=== PATIENT | male | born 1985 | race Caucasian/White ===

== ENCOUNTER 2017-10-12 07:29 | Emergency (ER) | payer OTHER ==
--- NOTE | 2017-10-12 07:41 | UC ---
Skin Complaint HPI - HPI Summary HPI Summary: 32 year old male with a skin complaint. Was picking hair from his nose a few days ago and since then right nostril inflamed and swollen. has had swelling spread to inferior aspect of the nostril. no fever. has been exposed to MRSA at home . has HTN and not treated for years. no DENTON. no S/S of HTN. - History of Current Complaint Time Seen by Provider: 10/12/17 07:40 Stated Complaint: ORAL/LIP COMPLAINT Hx Obtained From: Patient Onset/Duration: Gradual Onset Timing: Constant Associated Signs & Symptoms: Positive: Negative, Tenderness - Allergy/Home Medications Allergies/Adverse Reactions: Allergies Allergy/AdvReac Type Severity Reaction Status Date / Time No Known Allergies Allergy Verified 10/12/17 07:40 Review of Systems Skin: Other - tenderness / swelling right nostril area Is Patient Immunocompromised?: No All Other Systems Reviewed And Are Negative: Yes PMH/Surg Hx/FS Hx/Imm Hx Previously Healthy: Yes Endocrine History: Dyslipidemia Cardiovascular History: Hypertension - Surgical History Surgical History: None - Family History Known Family History: Positive: Hypertension, Respiratory Disease - Social History Occupation: Employed Full-time Lives: Dormitory/Roommates Substance Use Type: None Physical Exam Triage Information Reviewed: Yes Appearance: Well-Appearing, No Pain Distress, Well-Nourished Vital Signs Reviewed: Yes Eye Exam: Normal ENT Exam: Normal ENT: Positive: Other - right inferior turbinate erythematous, swollen . no discharge. moderate tenderness / swelling to palpation right nostril and mild right maxillary sinus Dental Exam: Normal Neck exam: Normal Neck: Positive: 1 Respiratory Exam: Normal Cardiovascular Exam: Normal Musculoskeletal Exam: Normal Neurological Exam: Normal Psychological Exam: Normal Skin Exam: Normal Course/Dx - Course Course Of Treatment: abscess: pt declined culture -- go to ED if any concerns. HTN: start lisinopril , go to PCP, go to ED if any concerns. he would like to resume BP meds - Differential Diagnoses - Skin Complaint Differential Diagnoses: Impetigo, Varicella Zoster - Diagnoses Provider Diagnoses: Right nostril abscess. Hypertension Discharge - Sign-Out/Discharge Documenting (check all that apply): Discharge - Discharge Plan Condition: Good Disposition: HOME Prescriptions: Doxycycline Hyclate 100 mg PO BID #20 tablet Lisinopril TAB* [Prinivil TAB 10 MG*] 10 mg PO DAILY #30 tab Mupirocin NASAL OINT (NF) [Bactroban NASAL OINT (NF)] 1 applic NASAL BID #1 nasal.oint Patient Education Materials: MRSA (Methicillin-Resistant Staphylococcus Aureus ) (ED), Hypertension (ED) Referrals: No Primary Care Phys,NOPCP [Primary Care Provider] - 4 Days (if needed ) - Billing Disposition and Condition Condition: GOOD Disposition: HOME
[2017-10-12 07:46] VITALS: BP 149/101
== END 2017-10-12 08:06 | disposition home or self-care (01) ==
LOC: UCCORT 07:29
DX: L01.00 Impetigo, unspecified (principal); B02.9 Zoster without complications; B01.9 Varicella without complication; I10 Essential (primary) hypertension; Z20.818 Contact with and (suspected) exposure to other bacterial communicable diseases
CPT/HCPCS: 99202; G0463